=== PATIENT | female | born 1995 | race Caucasian/White ===

== ENCOUNTER 2017-04-27 20:38 | Inpatient (IN) | payer MEDICAID ==
[2017-04-27] MEDS ORDERED: Penicillin G Potassium 5 MILLUNITS in Sodium Chloride 0.9% 50 ML IV ONE (22:00)
[2017-04-27] MEDS ORDERED: Zolpidem 5 MG Tab PO ONE (22:10)
[2017-04-28] MEDS: Penicillin G Potassium 2.5 MILLUNITS in Sodium Chloride 0.9% 50 ML IV SCH ×3 (01:37→10:10)
[2017-04-28] MEDS: fentaNYL 100 MCG/2 ML SDV IVPUSH PRN ×3 (02:49→05:54)
[2017-04-28] MEDS ORDERED: Sodium Chloride 0.9% 10 ML Syringe FLUSH PRN (05:52)
[2017-04-28] MEDS ORDERED: Ondansetron 4 MG/2 ML SDV IV PRN (05:52)
[2017-04-28] MEDS ORDERED: Acetaminophen 325 MG Tab PO PRN (05:52)
[2017-04-28] MEDS ORDERED: ePHEDrine 50 MG/ML SDV ONE (06:01)
[2017-04-28] MEDS ORDERED: Lactated Ringers 1,000 ML IV ONE (06:03)
--- NOTE | 2017-04-28 06:10 | PCM.LDHP ---
L&D History of Present Illness - General Date of Service: 04/27/17 Admit Problem/Dx: Patient Status Order with Admit Dx/Problem 04/27/17 21:30 Patient Status [ADT] Routine Admission Diagnosis/Problem Admission Diagnosis/Problem Source of Information: Patient History Limitations: Reports: No Limitations - History of Present Illness Pain Score: 8 - Related Data Allergies/Adverse Reactions: Allergies Allergy/AdvReac Type Severity Reaction Status Date / Time No Known Allergies Allergy Verified 04/02/17 14:26 Home Medications: Home Meds Magnesium Oxide/Mag AA Chelate [Magnesium] 300 mg PO DAILY 04/02/17 [History] Vit37/Iron/Folic Acid [[place]] 1 each PO DAILY 04/02/17 [History] Past Medical History HEENT History: Reports: None Gastrointestinal History: Reports: Hemorrhoids Genitourinary History: Reports: None 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 Para: 0 Other OB/BYN History: TRINH-04/29/2017 Musculoskeletal History: Reports: None Neurological History: Reports: None Endocrine/Metabolic History: Reports: None - Infectious Disease History Infectious Disease History: Reports: None - Past Surgical History HEENT Surgical History: Reports: Adenoidectomy, Tonsillectomy GI Surgical History: Reports: None Female Surgical History: Reports: None Endocrine Surgical History: Reports: None Neurological Surgical History: Reports: None Musculoskeletal Surgical History: Reports: None Social & Family History - Tobacco Use Smoking Status *Q: Never Smoker Second Hand Smoke Exposure: No - Caffeine Use Caffeine Use: Reports: None - Recreational Drug Use Recreational Drug Use: No H&P Review of Systems - Review of Systems: Review Of Systems: See Below General: Reports: No Symptoms HEENT: Reports: No Symptoms Pulmonary: Reports: No Symptoms Cardiovascular: Reports: No Symptoms Gastrointestinal: Reports: No Symptoms Genitourinary: Reports: No Symptoms Musculoskeletal: Reports: No Symptoms Skin: Reports: No Symptoms Psychiatric: Reports: No Symptoms Neurological: Reports: No Symptoms Hematologic/Lymphatic: Reports: No Symptoms Immunologic: Reports: No Symptoms L&D Exam - Exam Exam: See Below - Vital Signs Vital Signs: Last Vital Signs Temp 36.1 C 04/28/17 04:24 Pulse 88 04/28/17 04:24 Resp 20 04/28/17 04:24 BP 124/59 L 04/28/17 04:24 Pulse Ox Weight: 88.451 kg - OB Specific Contraction Duration (sec): 60-80 Contraction Frequency (min): 2-6 Contraction Intensity: Mild to Moderate - Exam General: Alert, Oriented HEENT: PERRLA, Conjunctiva Clear, EACs Clear, EOMI, Hearing Intact, Mucosa Moist & [place], Nares Patent, Normal Nasal Septum, Posterior Pharynx Clear, TMs Clear Neck: Supple, Trachea Midline Lungs: Clear to Auscultation, Normal Respiratory Effort Cardiovascular: Regular Rate, Regular Rhythm GI/Abdominal Exam: Normal Bowel Sounds, Soft, Non-Tender, No Organomegaly, No Distention, No Abnormal Bruit, No Mass, Pelvis Stable Genitourinary: Normal external exam, Normal bimanual exam Back Exam: Normal Inspection, Full Range of Motion Extremities: Normal Inspection, Normal Range of Motion, Non-Tender, No Pedal Edema, Normal Capillary Refill Skin: Warm, Dry, Intact Neurological: Cranial Nerves Intact, Reflexes Equal Bilateral Psychiatric: Alert, Normal Affect, Normal Mood - Patient Data Lab Results Last 24 hrs: Laboratory Results - last 24 hr 04/27/17 04/27/17 04/27/17 Range/Units 20:45 20:52 22:50 WBC 10.8 (4.5-11.0) K/uL RBC 3.76 (3.30-5.50) M/uL Hgb 11.4 L (12.0-15.0) g/dL Hct 33.9 L (36.0-48.0) % MCV 90 (80-98) fL MCH 30 (27-31) pg MCHC 34 (32-36) % Plt Count 184 (150-400) K/uL Urine Color Yellow Urine Appearance Slightly cloudy Urine pH 6.5 (4.5-8.0) Ur Specific [place] 1.010 (1.008-1.030) Urine Protein Trace (NEGATIVE) mg/dL Urine Glucose (UA) Normal (NEGATIVE) mg/dL Urine Ketones Negative (NEGATIVE) mg/dL Urine Occult Blood Large (NEGATIVE) Urine Nitrite Negative (NEGATIVE) Urine Bilirubin Negative (NEGATIVE) Urine Urobilinogen Normal (NORMAL) mg/dL Ur Leukocyte Esterase Negative (NEGATIVE) Urine RBC 30-40 H (0-5) Urine WBC 5-10 H (0-5) Ur Epithelial Cells Many Amorphous Sediment Not seen Urine Bacteria Many Urine Mucus Few Membrane Rupture Positive H (NEGATIVE) Urine Opiates Screen (NEGATIVE) Ur Oxycodone Screen (NEGATIVE) Urine Methadone Screen (NEGATIVE) Ur Propoxyphene Screen (NEGATIVE) Ur Barbiturates Screen (NEGATIVE) Ur Tricyclics Screen (NEGATIVE) Ur Phencyclidine Scrn (NEGATIVE) Ur Amphetamine Screen (NEGATIVE) U Methamphetamines Scrn (NEGATIVE) Urine MDMA Screen (NEGATIVE) U Benzodiazepines Scrn (NEGATIVE) U Cocaine Metab Screen (NEGATIVE) U Marijuana (THC) Screen (NEGATIVE) 04/27/17 Range/Units 22:50 WBC (4.5-11.0) K/uL RBC (3.30-5.50) M/uL Hgb (12.0-15.0) g/dL Hct (36.0-48.0) % MCV (80-98) fL MCH (27-31) pg MCHC (32-36) % Plt Count (150-400) K/uL Urine Color Urine Appearance Urine pH (4.5-8.0) Ur Specific [place] (1.008-1.030) Urine Protein (NEGATIVE) mg/dL Urine Glucose (UA) (NEGATIVE) mg/dL Urine Ketones (NEGATIVE) mg/dL Urine Occult Blood (NEGATIVE) Urine Nitrite (NEGATIVE) Urine Bilirubin (NEGATIVE) Urine Urobilinogen (NORMAL) mg/dL Ur Leukocyte Esterase (NEGATIVE) Urine RBC (0-5) Urine WBC (0-5) Ur Epithelial Cells Amorphous Sediment Urine Bacteria Urine Mucus Membrane Rupture (NEGATIVE) Urine Opiates Screen Negative (NEGATIVE) Ur Oxycodone Screen Negative (NEGATIVE) Urine Methadone Screen Negative (NEGATIVE) Ur Propoxyphene Screen Negative (NEGATIVE) Ur Barbiturates Screen Negative (NEGATIVE) Ur Tricyclics Screen Negative (NEGATIVE) Ur Phencyclidine Scrn Negative (NEGATIVE) Ur Amphetamine Screen Negative (NEGATIVE) U Methamphetamines Scrn Negative (NEGATIVE) Urine MDMA Screen Negative (NEGATIVE) U Benzodiazepines Scrn Negative (NEGATIVE) U Cocaine Metab Screen Negative (NEGATIVE) U Marijuana (THC) Screen Negative (NEGATIVE) Result Diagrams: 04/27/17 22:50 - Problem List (1) SNOMED Code(s): 62948547 ICD Code: Z34.90 - ENCNTR FOR SUPRVSN OF NORMAL , UNSP, UNSP TRIMESTER Status: Acute Current Visit: Yes Qualifiers: Weeks of gestation: 39 weeks Qualified Code(s): Z3A.39 - 39 weeks gestation of (2) GBS (group B streptococcus) infection SNOMED Code(s): 997585784 ICD Code: A49.1 - STREPTOCOCCAL INFECTION, UNSPECIFIED SITE Status: Acute Current Visit: Yes (3) PROM (premature rupture of membranes) SNOMED Code(s): 59278883 ICD Code: O42.90 - NENA ROM, 7TH0 BETW RUPT & ONST LABR, UNSP WEEKS OF GEST Status: Acute Current Visit: Yes Qualifiers: PROM gestational age: full term Problem List Initiated/Reviewed/Updated: Yes Orders Last 24hrs: Active Orders 24 hr Category Date Time Status Patient Status [ADT] Routine ADT 04/27/17 21:30 Ordered Ambulate [RC] PER UNIT ROUTINE Care 04/28/17 05:52 Ordered Communication Order [RC] ASDIRECTED Care 04/28/17 05:52 Ordered Heart Tones [RC] PER UNIT ROUTINE Care 04/28/17 05:52 Ordered Local Anesthetic Infusion Pump [RC] ASDIRECTED Care 04/28/17 06:03 Ordered Notify Provider Vital Signs [RC] PRN Care 04/27/17 21:30 Ordered Notify Provider [RC] PRN Care 04/28/17 05:52 Ordered OB Check [OM.PC] Click to Edit Care 04/27/17 20:45 Ordered PCEA Epidural [RC] ASDIRECTED Care 04/28/17 06:03 Ordered Up ad Bhavana [RC] ASDIRECTED Care 04/28/17 05:52 Ordered VTE/DVT Education [RC] Click to Edit Care 04/28/17 06:01 Ordered Vital Signs [RC] PER UNIT ROUTINE Care 04/28/17 05:52 Ordered Acetaminophen [Tylenol] Med 04/28/17 05:52 Ordered 650 mg PO Q4H PRN Lactated Ringers [Ringers, Lactated] 1,000 ml Med 04/28/17 06:03 Ordered IV .BOLUS Ondansetron [Zofran] Med 04/28/17 05:52 Ordered 4 mg IV Q4H PRN Oxytocin/Normal Saline [Pitocin in NS 20 Units/1,000 ML Med 04/28/17 04:45 Active ] 20 unit in 1,000 ml IV TITRATE Penicillin G Potassium [Pfizerpen] 2.5 millunits Med 04/28/17 02:00 Active Sodium Chloride 0.9% [Normal Saline] 50 ml IV Q4H Sodium Chloride 0.9% [Saline Flush] Med 04/28/17 05:52 Ordered 10 ml FLUSH ASDIRECTED PRN ePHEDrine [ePHEDrine Sulfate] Med 04/28/17 06:01 Discontinued 50 mg .ROUTE .STK-MED ONE fentaNYL [Sublimaze] Med 04/28/17 02:38 Active 50 - 100 mcg IVPUSH Q1H PRN DVT/VTE Prophylaxis Reflex [OM.PC] Routine Oth 04/27/17 21:30 Ordered Epidural Catheter Management [OM.PC] Urgent Oth 04/28/17 06:03 Ordered Saline Lock Insert [OM.PC] Routine Oth 04/28/17 05:52 Ordered Resuscitation Status Routine Resus Stat 04/28/17 05:52 Ordered Medication Orders Acetaminophen (Tylenol) 650 mg PO Q4H PRN PRN Reason: Pain (Mild 1-3) and fever Fentanyl (Sublimaze) 50 - 100 mcg IVPUSH Q1H PRN PRN Reason: Pain (severe 7-10) Last Admin: 04/28/17 05:54 Dose: 100 mcg Admin: 04/28/17 04:22 Dose: 100 mcg Admin: 04/28/17 02:49 Dose: 50 mcg Penicillin G Potassium 2.5 (millunits/ Sodium Chloride) 50 mls @ 100 mls/hr IV Q4H TAMERA Last Admin: 04/28/17 01:37 Dose: 100 mls/hr Oxytocin/Sodium Chloride (Pitocin In Ns 20 Units/1,000 Ml) 20 unit in 1,000 mls @ 6 mls/hr IV TITRATE TAMERA; 2 MUNITS/MIN PRN Reason: Protocol Last Titration: 04/28/17 05:32 Dose: 3 munits/min, 9 mls/hr Admin: 04/28/17 05:02 Dose: 2 munits/min, 6 mls/hr Lactated Ringer's (Ringers, Lactated) 1,000 mls @ 999 mls/hr IV .BOLUS ONE Stop: 04/28/17 07:03 Ondansetron HCl (Zofran) 4 mg IV Q4H PRN PRN Reason: Nausea/Vomiting Sodium Chloride (Saline Flush) 10 ml FLUSH ASDIRECTED PRN PRN Reason: Keep Vein Open Assessment/Plan Comment:: 04/27/2017 21 yo came in tonight with SROM at around 2020 after getting off of work. SVE-/-3 very posterior Amnisure positive Labs-GBS positive, Rubella Immune, O positive, RPR nonreactive, Hep B negative, HIV negative [place] every 2-6 minutes FHTs category one Plan- Will initiate GBS antibiotics per protocol Will admit for labor Monitor for active labor Monitor FHTs Patient states wants no pain medication Will order ambien for sleep If no labor by 0500-will initiate pitocin per protocol Plan and anticipate an vaginal delivery
--- NOTE | 2017-04-28 06:23 | PCM.PNLD ---
Labor Progress Note - VS & Meds Vital Signs: Last Vital Signs Temp 36.1 C 04/28/17 04:24 Pulse 88 04/28/17 04:24 Resp 20 04/28/17 04:24 BP 124/59 L 04/28/17 04:24 Pulse Ox Active Medications: Current Medications Acetaminophen (Tylenol) 650 mg PO Q4H PRN PRN Reason: Pain (Mild 1-3) and fever Fentanyl (Sublimaze) 50 - 100 mcg IVPUSH Q1H PRN PRN Reason: Pain (severe 7-10) Last Admin: 04/28/17 05:54 Dose: 100 mcg Penicillin G Potassium 2.5 (millunits/ Sodium Chloride) 50 mls @ 100 mls/hr IV Q4H TAMERA Last Admin: 04/28/17 01:37 Dose: 100 mls/hr Oxytocin/Sodium Chloride (Pitocin In Ns 20 Units/1,000 Ml) 20 unit in 1,000 mls @ 6 mls/hr IV TITRATE TAMERA; 2 MUNITS/MIN PRN Reason: Protocol Last Titration: 04/28/17 05:32 Dose: 3 munits/min, 9 mls/hr Lactated Ringer's (Ringers, Lactated) 1,000 mls @ 999 mls/hr IV .BOLUS ONE Stop: 04/28/17 07:03 Ondansetron HCl (Zofran) 4 mg IV Q4H PRN PRN Reason: Nausea/Vomiting Sodium Chloride (Saline Flush) 10 ml FLUSH ASDIRECTED PRN PRN Reason: Keep Vein Open Discontinued Medications Ephedrine Sulfate (Ephedrine Sulfate) Confirm Administered Dose 50 mg .ROUTE .STK-MED ONE Stop: 04/28/17 06:02 Penicillin G Potassium 5 (millunits/ Sodium Chloride) 50 mls @ 100 mls/hr IV ONETIME ONE Stop: 04/27/17 22:29 Last Admin: 04/27/17 22:25 Dose: 100 mls/hr Zolpidem Tartrate (Ambien) 5 mg PO BEDTIME ONE Stop: 04/27/17 22:11 Last Admin: 04/27/17 22:49 Dose: 5 mg - Uterine Contractions Uterine Monitoring Mode: External [place] Contraction Frequency (min): 2-6 Contraction Duration (sec): 60-80 Contraction Intensity: Mild to Moderate Uterine Resting Tone: Soft - Vaginal Exam Dilation (cm): 3-4 Effacement (Percent): 100 Station: -2 Cervical Position: Midposition Sterile Vaginal Exam Performed By: Janice Wellington - Labor Progress (Free Text) Labor Progress: 04/28/2017 Patient is not tolerating contractions, she has need multiple doses of fentanyl and his very tearful SVE-3-4/100/-2 midposition Patient would like an epidural Contractions every 2-3 minutes and strong FHTs category one Plan- Will get the patient an epidural per her request Continue antibiotics for GBS status Place sandy once patient is comfortable Continue to monitor labor Continue to monitor FHTs Plan and anticipate a vaginal delivery
[2017-04-28] MEDS ORDERED: Ropivacaine 100 ML ONE (06:55)
[2017-04-28] MEDS ORDERED: ePHEDrine 50 MG/ML SDV IVPUSH ONE (07:00)
[2017-04-28] MEDS ORDERED: Lidocaine 1% 50 ML MDV ONE (09:18)
--- NOTE | 2017-04-28 09:52 | PCM.PNLD ---
Labor Progress Note - VS & Meds Vital Signs: Last Vital Signs Temp 97.0 F 04/28/17 04:24 Pulse 98 04/28/17 08:30 Resp 16 04/28/17 08:30 BP 107/78 04/28/17 08:30 Pulse Ox 97 04/28/17 08:30 Active Medications: Current Medications Acetaminophen (Tylenol) 650 mg PO Q4H PRN PRN Reason: Pain (Mild 1-3) and fever Fentanyl (Sublimaze) 50 - 100 mcg IVPUSH Q1H PRN PRN Reason: Pain (severe 7-10) Last Admin: 04/28/17 05:54 Dose: 100 mcg Penicillin G Potassium 2.5 (millunits/ Sodium Chloride) 50 mls @ 100 mls/hr IV Q4H TAMERA Last Admin: 04/28/17 07:00 Dose: 100 mls/hr Oxytocin/Sodium Chloride (Pitocin In Ns 20 Units/1,000 Ml) 20 unit in 1,000 mls @ 6 mls/hr IV TITRATE TAMERA; 2 MUNITS/MIN PRN Reason: Protocol Last Titration: 04/28/17 05:32 Dose: 3 munits/min, 9 mls/hr Ondansetron HCl (Zofran) 4 mg IV Q4H PRN PRN Reason: Nausea/Vomiting Sodium Chloride (Saline Flush) 10 ml FLUSH ASDIRECTED PRN PRN Reason: Keep Vein Open Discontinued Medications Ephedrine Sulfate (Ephedrine Sulfate) Confirm Administered Dose 50 mg .ROUTE .STK-MED ONE Stop: 04/28/17 06:02 Last Admin: 04/28/17 06:57 Dose: 10 mg Penicillin G Potassium 5 (millunits/ Sodium Chloride) 50 mls @ 100 mls/hr IV ONETIME ONE Stop: 04/27/17 22:29 Last Admin: 04/27/17 22:25 Dose: 100 mls/hr Lactated Ringer's (Ringers, Lactated) 1,000 mls @ 999 mls/hr IV .BOLUS ONE Stop: 04/28/17 07:03 Last Admin: 04/28/17 05:30 Dose: 999 mls/hr Ropivacaine (Naropin 0.2%) Confirm Administered Dose 100 mls @ as directed .ROUTE .STK-MED ONE Stop: 04/28/17 06:56 Lidocaine HCl (Xylocaine 1%) Confirm Administered Dose 100 ml .ROUTE .STK-MED ONE Stop: 04/28/17 09:19 Zolpidem Tartrate (Ambien) 5 mg PO BEDTIME ONE Stop: 04/27/17 22:11 Last Admin: 04/27/17 22:49 Dose: 5 mg - Uterine Contractions Uterine Monitoring Mode: External [place] Contraction Frequency (min): 2-3 Contraction Duration (sec): 80 Contraction Intensity: Mild to Moderate Uterine Resting Tone: Soft - Monitoring Monitor Mode: Doppler/Auscultation Heart Rate (FHR) Baseline: 140 Heart Rate (FHR) Variability: Moderate (6-25 bmp) Accelerations: Present, 15x15 Decelerations: Early Strip Review: Category I - Vaginal Exam Dilation (cm): 9 Effacement (Percent): 100 Station: 1 Cervical Position: Anterior Sterile Vaginal Exam Performed By: Caroline Vyas Vaginal Exam Comment: has an anterior lip and paritial epidural. Left buttock pain - Labor Progress (Free Text) Labor Progress: anterior lip, nice progress. Baby needs to come down more before pushing
[2017-04-28] MEDS ORDERED: Methylergonovine 0.2 MG/1 ML Amp IM ONE (11:35)
[2017-04-28] MEDS ORDERED: Methylergonovine 0.2 MG/1 ML Amp ONE (11:35)
[2017-04-28] MEDS ORDERED: Acetaminophen/Codeine 300-30 MG Tab PO PRN (12:07)
[2017-04-28] MEDS ORDERED: Acetaminophen 325 MG Tab, 50 Tab Bulk Bottle PO PRN (12:07)
[2017-04-28] MEDS ORDERED: Ibuprofen 200 MG Tab, 24 Tab Bulk Bottle PO PRN (12:07)
--- NOTE | 2017-04-28 12:32 | PCM.DEL ---
L & D Note - General Info Date of Service: 04/28/17 (delivery) Mother's Due Date: 04/29/17 - Delivery Note Labor: Spontaneous, Augmented by Oxytocin Delivery Outcome: Livebirth Infant Delivery Method: Spontaneous Vaginal Delivery Infant Delivery Mode: Spontaneous Presentation: Vertex Nuchal Cord: None Anesthesia Type: Epidural Amniotic Fluid Description: Clear Episiotomy Type: Midline Suture type: Vicryl Suture size: 3-0 Placenta: Intact, Spontaneous, Expressed Cord: 3 Vessels Estimated Blood Loss: 500 Resuscitation Needed: No : Stimulated, Warmed, [place] Used Provider: Caroline Vyas Score 1 min: 9 Score 5 min: 9 Score 10 min: 10 Post Delivery Events: Hemorrhage Second Stage Interventions: Reports: Second Nurse Reviewed Heart Tones, Pushing, McRobert's Position, Pushing, Squat Bar Pulling on Sheet Delivery Comments (Free Text/Narrative):: This 21 year old G1 now P1 who is 39 6/7 present last evening at 2224 with srom. Augmented contractions and obtained an epidural after that progressed nicely. Labored down after complete. in TRIP. An episiotomy was preformed to assist with delivery. A viable male infant was delivered without a nuchal cord onto mother's abdomen. He cried spontaneously. He was dried and stimulated 9,9,10., three vessel cord. THe placenta was expressed spontaneously in [place] antoine. Mother was bleeding briskly, Active management of third stage plus Methergine IM given and improved bleeding. The episiotomy was midline and repaired with 3-0 vicryl in standard fashion. Once the apex of the incision was ligated the bleeding improved. locked sutures to the hymenal ring, then interrupted sutures to repair perineum. No laceration of cervix, rectum were found.EBL 500 cc Mother and baby to nursery in stable condition.. First stage 0681-1410 Secind stage-1133 Third Stage 0449-4680 Baby weight 8-15 Induction Criteria - Peres Score Peres Score Dilation: 3-4 cm Peres Score Effacement: >80% Peres Score 's Station: -2 Peres Score Consistency: Soft Peres Score Cervix Position: Midposition Peres Score Total: 9 Peres Score Presenting Part: Reports: Cephalic - Induction Gestational Age >/= 39 wks: Yes Estimated Pelvis: Reports: Adequate Reassuring Monitoring Strip: Yes Absence of Tachy Systole: Yes - Augmentation Estimated Pelvis: Reports: Adequate Weight Estimated:: Reports: AGA Estimated Weight if LGA: 8 lb Reassuring monitoring strip: Yes Absence of tachy systole: Yes - General Info Date of Service: 04/28/17 Admission Dx/Problem (Free Text): Patient Status Order with Admit Dx/Problem 04/27/17 21:30 Patient Status [ADT] Routine Admission Diagnosis/Problem Admission Diagnosis/Problem Functional Status: Reports: Pain Controlled - Review of Systems General: Reports: No Symptoms HEENT: Reports: No Symptoms Pulmonary: Reports: No Symptoms Cardiovascular: Reports: No Symptoms Gastrointestinal: Reports: No Symptoms Genitourinary: Reports: No Symptoms Musculoskeletal: Reports: No Symptoms Skin: Reports: No Symptoms Neurological: Reports: No Symptoms Psychiatric: Reports: No Symptoms - Patient Data Vitals - Most Recent: Last Vital Signs Temp 97.0 F 04/28/17 04:24 Pulse 98 04/28/17 08:30 Resp 16 04/28/17 08:30 BP 107/78 04/28/17 08:30 Pulse Ox 97 04/28/17 08:30 Weight - Most Recent: 195 lb I&O - Last 24 Hours: Intake & Output 04/27/17 04/28/17 04/28/17 22:59 06:59 14:59 Intake Total 3075 Output Total 50 Balance 3025 Lab Results Last 24 Hours: Laboratory Results - last 24 hr 04/27/17 04/27/17 04/27/17 Range/Units 20:45 20:52 22:50 WBC 10.8 (4.5-11.0) K/uL RBC 3.76 (3.30-5.50) M/uL Hgb 11.4 L (12.0-15.0) g/dL Hct 33.9 L (36.0-48.0) % MCV 90 (80-98) fL MCH 30 (27-31) pg MCHC 34 (32-36) % Plt Count 184 (150-400) K/uL Urine Color Yellow Urine Appearance Slightly cloudy Urine pH 6.5 (4.5-8.0) Ur Specific [place] 1.010 (1.008-1.030) Urine Protein Trace (NEGATIVE) mg/dL Urine Glucose (UA) Normal (NEGATIVE) mg/dL Urine Ketones Negative (NEGATIVE) mg/dL Urine Occult Blood Large (NEGATIVE) Urine Nitrite Negative (NEGATIVE) Urine Bilirubin Negative (NEGATIVE) Urine Urobilinogen Normal (NORMAL) mg/dL Ur Leukocyte Esterase Negative (NEGATIVE) Urine RBC 30-40 H (0-5) Urine WBC 5-10 H (0-5) Ur Epithelial Cells Many Amorphous Sediment Not seen Urine Bacteria Many Urine Mucus Few Membrane Rupture Positive H (NEGATIVE) Urine Opiates Screen (NEGATIVE) Ur Oxycodone Screen (NEGATIVE) Urine Methadone Screen (NEGATIVE) Ur Propoxyphene Screen (NEGATIVE) Ur Barbiturates Screen (NEGATIVE) Ur Tricyclics Screen (NEGATIVE) Ur Phencyclidine Scrn (NEGATIVE) Ur Amphetamine Screen (NEGATIVE) U Methamphetamines Scrn (NEGATIVE) Urine MDMA Screen (NEGATIVE) U Benzodiazepines Scrn (NEGATIVE) U Cocaine Metab Screen (NEGATIVE) U Marijuana (THC) Screen (NEGATIVE) 04/27/17 Range/Units 22:50 WBC (4.5-11.0) K/uL RBC (3.30-5.50) M/uL Hgb (12.0-15.0) g/dL Hct (36.0-48.0) % MCV (80-98) fL MCH (27-31) pg MCHC (32-36) % Plt Count (150-400) K/uL Urine Color Urine Appearance Urine pH (4.5-8.0) Ur Specific [place] (1.008-1.030) Urine Protein (NEGATIVE) mg/dL Urine Glucose (UA) (NEGATIVE) mg/dL Urine Ketones (NEGATIVE) mg/dL Urine Occult Blood (NEGATIVE) Urine Nitrite (NEGATIVE) Urine Bilirubin (NEGATIVE) Urine Urobilinogen (NORMAL) mg/dL Ur Leukocyte Esterase (NEGATIVE) Urine RBC (0-5) Urine WBC (0-5) Ur Epithelial Cells Amorphous Sediment Urine Bacteria Urine Mucus Membrane Rupture (NEGATIVE) Urine Opiates Screen Negative (NEGATIVE) Ur Oxycodone Screen Negative (NEGATIVE) Urine Methadone Screen Negative (NEGATIVE) Ur Propoxyphene Screen Negative (NEGATIVE) Ur Barbiturates Screen Negative (NEGATIVE) Ur Tricyclics Screen Negative (NEGATIVE) Ur Phencyclidine Scrn Negative (NEGATIVE) Ur Amphetamine Screen Negative (NEGATIVE) U Methamphetamines Scrn Negative (NEGATIVE) Urine MDMA Screen Negative (NEGATIVE) U Benzodiazepines Scrn Negative (NEGATIVE) U Cocaine Metab Screen Negative (NEGATIVE) U Marijuana (THC) Screen Negative (NEGATIVE) Med Orders - Current: Current Medications Acetaminophen (Tylenol) 650 mg PO Q4H PRN PRN Reason: Pain (Mild 1-3) and fever Acetaminophen (Tylenol Bulk Bottle) 325 mg PO Q4H PRN PRN Reason: Pain Acetaminophen/Codeine Phosphate (Tylenol With Codeine No.3 300mg/30mg) 1 tab PO Q4H PRN PRN Reason: Pain (moderate 4-6) Docusate Sodium (Colace) 100 mg PO BID TAMERA Fentanyl (Sublimaze) 50 - 100 mcg IVPUSH Q1H PRN PRN Reason: Pain (severe 7-10) Last Admin: 04/28/17 05:54 Dose: 100 mcg Ferrous Sulfate (Ferrous Sulfate) 325 mg PO WITHBREAKFAST TAMERA Penicillin G Potassium 2.5 (millunits/ Sodium Chloride) 50 mls @ 100 mls/hr IV Q4H TAMERA Last Admin: 04/28/17 10:10 Dose: 100 mls/hr Oxytocin/Sodium Chloride (Pitocin In Ns 20 Units/1,000 Ml) 20 unit in 1,000 mls @ 6 mls/hr IV TITRATE TAMERA; 2 MUNITS/MIN PRN Reason: Protocol Last Titration: 04/28/17 05:32 Dose: 3 munits/min, 9 mls/hr Ibuprofen (Motrin Bulk Bottle) 600 mg PO Q6H PRN PRN Reason: Pain Ondansetron HCl (Zofran) 4 mg IV Q4H PRN PRN Reason: Nausea/Vomiting Sodium Chloride (Saline Flush) 10 ml FLUSH ASDIRECTED PRN PRN Reason: Keep Vein Open Discontinued Medications Ephedrine Sulfate (Ephedrine Sulfate) Confirm Administered Dose 50 mg .ROUTE .STK-MED ONE Stop: 04/28/17 06:02 Last Admin: 04/28/17 06:57 Dose: 10 mg Penicillin G Potassium 5 (millunits/ Sodium Chloride) 50 mls @ 100 mls/hr IV ONETIME ONE Stop: 04/27/17 22:29 Last Admin: 04/27/17 22:25 Dose: 100 mls/hr Lactated Ringer's (Ringers, Lactated) 1,000 mls @ 999 mls/hr IV .BOLUS ONE Stop: 04/28/17 07:03 Last Admin: 04/28/17 05:30 Dose: 999 mls/hr Ropivacaine (Naropin 0.2%) Confirm Administered Dose 100 mls @ as directed .ROUTE .STK-MED ONE Stop: 04/28/17 06:56 Lidocaine HCl (Xylocaine 1%) Confirm Administered Dose 100 ml .ROUTE .STK-MED ONE Stop: 04/28/17 09:19 Methylergonovine Maleate (Methergine) Confirm Administered Dose 0.2 mg .ROUTE .STK-MED ONE Stop: 04/28/17 11:36 Zolpidem Tartrate (Ambien) 5 mg PO BEDTIME ONE Stop: 04/27/17 22:11 Last Admin: 04/27/17 22:49 Dose: 5 mg - Exam General: Alert, Oriented HEENT: Pupils Equal, Pupils Reactive, EOMI, Mucous Membr. Moist/[place] Neck: Supple Lungs: Clear to Auscultation, Normal Respiratory Effort Cardiovascular: Regular Rate, Regular Rhythm GI/Abdominal Exam: Normal Bowel Sounds, Soft, Non-Tender, Pelvis Stable (Female) Exam: Cervical Dilatation, Enlarged Uterus, Vaginal Bleeding, Other (episiotomy) Back Exam: Normal Inspection, Full Range of Motion Extremities: Normal Inspection, Normal Range of Motion, Non-Tender, Normal Capillary Refill Skin: Warm, Dry, Intact Wound/Incisions: Healing Well Neurological: No New Focal Deficit Psy/Mental Status: Alert, Normal Affect, Normal Mood - Problem List & Annotations (1) Normal labor and delivery SNOMED Code(s): 39065577, 801566251 Code(s): O80 - ENCOUNTER FOR FULL-TERM UNCOMPLICATED DELIVERY Status: Acute Current Visit: Yes (2) (infant) SNOMED Code(s): 054586194 Code(s): Z78.9 - OTHER SPECIFIED HEALTH STATUS Status: Acute Current Visit: Yes (3) SNOMED Code(s): 89450433 Code(s): Z34.90 - ENCNTR FOR SUPRVSN OF NORMAL , UNSP, UNSP TRIMESTER Status: Acute Current Visit: Yes Qualifiers: Weeks of gestation: 39 weeks Qualified Code(s): Z3A.39 - 39 weeks gestation of (4) GBS (group B streptococcus) infection SNOMED Code(s): 277064253 Code(s): A49.1 - STREPTOCOCCAL INFECTION, UNSPECIFIED SITE Status: Acute Current Visit: Yes (5) PROM (premature rupture of membranes) SNOMED Code(s): 11740746 Code(s): O42.90 - NENA ROM, 7TH0 BETW RUPT & ONST LABR, UNSP WEEKS OF GEST Status: Acute Current Visit: Yes Qualifiers: PROM onset of labor timing: onset of labor within 24 hours of rupture PROM gestational age: full term Qualified Code(s): O42.02 - Full-term premature rupture of membranes, onset of labor within 24 hours of rupture - Problem List Review Problem List Initiated/Reviewed/Updated: Yes - My Orders Last 24 Hours: My Active Orders 04/28/17 12:07 Acetaminophen [Tylenol Bulk Bottle] 325 mg PO Q4H PRN Acetaminophen/Codeine [Tylenol with Codeine No.3 300MG/30MG] 1 tab PO Q4H PRN Ibuprofen [Motrin Bulk Bottle] 600 mg PO Q6H PRN Assess Lochia [WOMSER] Per Unit Routine Assess Uterine Involution [WOMSER] Per Unit Routine 04/28/17 12:09 Patient Status [ADT] Routine Vital Signs [RC] PFP Ice Therapy [OM.PC] Per Unit Routine Perineal Care [OM.PC] Per Unit Routine 04/28/17 12:10 Peripheral IV Discontinue [OM.PC] Routine 04/28/17 12:15 Docusate Sodium [Colace] 100 mg PO BID 04/28/17 Lunch Regular Diet [DIET] 04/29/17 05:11 CBC W/O DIFF,HEMOGRAM [HEME] AM 04/29/17 08:00 Ferrous Sulfate 325 mg PO WITHBREAKFAST - Assessment Assessment:: 21 yr old G1 now P1 without complications, episiotomy with repair ABO O pos GBS Pos, treated HIV neg Rubella immune - Plan Plan:: 04/27/2017 21 yo came in tonight with SROM at around 2020 after getting off of work. SVE-2/50/-3 very posterior Amnisure positive Labs-GBS positive, Rubella Immune, O positive, RPR nonreactive, Hep B negative, HIV negative Korey every 2-6 minutes FHTs category one Plan- Will initiate GBS antibiotics per protocol Will admit for labor Monitor for active labor Monitor FHTs Patient states wants no pain medication Will order ambien for sleep If no labor by 0500-will initiate pitocin per protocol Plan and anticipate an vaginal delivery 04/28/17 Routine care 48 hour stay due to GBS status Monitor bleeding, HGB in AM Repair, ice times 24 hours Support
[2017-04-28] MEDS: Docusate Sodium 100 MG Cap PO SCH (13:32)
--- NOTE | 2017-04-28 14:32 | ANES ---
DATE OF SERVICE: 04/28/2017 INDICATION: Maryam is a 21-year-old female patient of Janice Wellington CNM in her OB unit. I was consulted for assessment, labor epidural for a prolonged stage II labor. On arrival, I found Maryam sitting at the edge of the bed. I discussed with her the patient history as well as reviewed her lab work and risks and benefits of the procedure and found no contraindication of the procedure. She was okay to proceed and consent was received. DESCRIPTION OF PROCEDURE: I had her continue seated at the edge of the bed. Betadine prep x3 to lumbar region. Sterile drape was placed, 1% lidocaine skin wheal as well as deep at the L3-L4 region. A 17-gauge Tuohy was placed to loss of resistance with ease. Negative CSF, negative heme, and negative paresthesia. I placed a catheter to 13 cm. I removed the needle. A test dose of 3 mL of 1.5% lidocaine and 1:200,000 epinephrine. She tolerated that quite well. I secured the catheter, placed it in supine position. Dosed her with 12 mL of 0.2% ropivacaine and began an infusion of that same 0.2% at 12 mL an hour. She tolerated the procedure quite well. Please refer to nursing notes for vital signs and neuro status, which were unchanged. I reported off to nursing, Janice nurse resin coater. Again, the patient tolerated the procedure quite well. Herbert Miles CRNA /[id number]
[2017-04-28] MEDS ORDERED: Benzocaine 20% Top Spray 56 GM Bottle TOP PRN (15:32)
[2017-04-28] MEDS ORDERED: Witch Hazel Medicated Pads 100/Jar TOP PRN (15:36)
[2017-04-29] MEDS: Docusate Sodium 100 MG Cap PO SCH ×3 (06:51→20:58)
[2017-04-29] MEDS: Ferrous Sulfate 325 MG Tab PO SCH (08:32)
--- NOTE | 2017-04-29 10:04 | PCM.PNPP ---
- General Info Date of Service: 04/29/17 Functional Status: Reports: Pain Controlled - Review of Systems General: Reports: No Symptoms HEENT: Reports: No Symptoms Pulmonary: Reports: No Symptoms Cardiovascular: Reports: No Symptoms Gastrointestinal: Reports: No Symptoms Genitourinary: Reports: No Symptoms Musculoskeletal: Reports: No Symptoms Skin: Reports: No Symptoms Neurological: Reports: No Symptoms Psychiatric: Reports: No Symptoms - General Info Date of Service: 04/29/17 - Patient Data Vital Signs - Most Recent: Last Vital Signs Temp 97.5 F 04/29/17 07:55 Pulse 93 04/29/17 07:55 Resp 16 04/29/17 07:55 BP 104/59 L 04/29/17 07:55 Pulse Ox 98 04/29/17 07:55 Weight - Most Recent: 195 lb I&O - Last 24 Hours: Intake & Output 04/28/17 04/29/17 04/29/17 22:59 06:59 14:59 Intake Total 800 620 Balance 800 620 Lab Results - Last 24 Hours: Laboratory Results - last 24 hr 04/29/17 Range/Units 05:45 WBC 15.5 H (4.5-11.0) K/uL RBC 3.20 L (3.30-5.50) M/uL Hgb 9.7 L (12.0-15.0) g/dL Hct 29.0 L (36.0-48.0) % MCV 91 (80-98) fL MCH 30 (27-31) pg MCHC 33 (32-36) % Plt Count 170 (150-400) K/uL Med Orders - Current: Current Medications Acetaminophen (Tylenol) 650 mg PO Q4H PRN PRN Reason: Pain (Mild 1-3) and fever Acetaminophen (Tylenol Bulk Bottle) 325 - 650 mg PO Q4H PRN PRN Reason: Pain Last Admin: 04/28/17 13:33 Dose: 1 bottle Acetaminophen/Codeine Phosphate (Tylenol With Codeine No.3 300mg/30mg) 1 tab PO Q4H PRN PRN Reason: Pain (moderate 4-6) Benzocaine (Ateb-T-Btpbtvo 20% Watson) 0 gm TOP ASDIRECTED PRN PRN Reason: Pain Docusate Sodium (Colace) 100 mg PO BID TAMERA Last Admin: 04/29/17 08:32 Dose: 100 mg Fentanyl (Sublimaze) 50 - 100 mcg IVPUSH Q1H PRN PRN Reason: Pain (severe 7-10) Last Admin: 04/28/17 05:54 Dose: 100 mcg Ferrous Sulfate (Ferrous Sulfate) 325 mg PO WITHBREAKFAST TAMERA Last Admin: 04/29/17 08:32 Dose: 325 mg Oxytocin/Sodium Chloride (Pitocin In Ns 20 Units/1,000 Ml) 20 unit in 1,000 mls @ 6 mls/hr IV TITRATE TAMERA; 2 MUNITS/MIN PRN Reason: Protocol Last Titration: 04/28/17 05:32 Dose: 3 munits/min, 9 mls/hr Oxytocin/Sodium Chloride (Pitocin In Ns 20 Units/1,000 Ml) 20 unit in 1,000 mls @ 6 mls/hr IV TITRATE TAMERA; 2 MUNITS/MIN PRN Reason: Protocol Ibuprofen (Motrin Bulk Bottle) 600 mg PO Q6H PRN PRN Reason: Pain Last Admin: 04/28/17 13:33 Dose: 1 bottle Ondansetron HCl (Zofran) 4 mg IV Q4H PRN PRN Reason: Nausea/Vomiting Sodium Chloride (Saline Flush) 10 ml FLUSH ASDIRECTED PRN PRN Reason: Keep Vein Open Witch Ilene (Tucks) 1 pad TOP ASDIRECTED PRN PRN Reason: Pain Discontinued Medications Ephedrine Sulfate (Ephedrine Sulfate) Confirm Administered Dose 50 mg .ROUTE .STK-MED ONE Stop: 04/28/17 06:02 Last Admin: 04/28/17 06:57 Dose: 10 mg Ephedrine Sulfate (Ephedrine Sulfate) 50 mg IVPUSH ONETIME ONE Stop: 04/28/17 07:01 Last Admin: 04/29/17 05:16 Dose: Not Given Penicillin G Potassium 5 (millunits/ Sodium Chloride) 50 mls @ 100 mls/hr IV ONETIME ONE Stop: 04/27/17 22:29 Last Admin: 04/27/17 22:25 Dose: 100 mls/hr Penicillin G Potassium 2.5 (millunits/ Sodium Chloride) 50 mls @ 100 mls/hr IV Q4H TAMERA Last Admin: 04/28/17 10:10 Dose: 100 mls/hr Lactated Ringer's (Ringers, Lactated) 1,000 mls @ 999 mls/hr IV .BOLUS ONE Stop: 04/28/17 07:03 Last Admin: 04/28/17 05:30 Dose: 999 mls/hr Ropivacaine (Naropin 0.2%) Confirm Administered Dose 100 mls @ as directed .ROUTE .STK-MED ONE Stop: 04/28/17 06:56 Lidocaine HCl (Xylocaine 1%) Confirm Administered Dose 100 ml .ROUTE .STK-MED ONE Stop: 04/28/17 09:19 Last Admin: 04/29/17 05:16 Dose: Not Given Methylergonovine Maleate (Methergine) Confirm Administered Dose 0.2 mg .ROUTE .STK-MED ONE Stop: 04/28/17 11:36 Last Admin: 04/28/17 11:38 Dose: 0.2 mg Methylergonovine Maleate (Methergine) 0.2 mg IM Q4H ONE Stop: 04/28/17 11:36 Last Admin: 04/29/17 05:16 Dose: Not Given Zolpidem Tartrate (Ambien) 5 mg PO BEDTIME ONE Stop: 04/27/17 22:11 Last Admin: 04/27/17 22:49 Dose: 5 mg - Infant Interaction Infant Disposition, : [place] in Room with Family Infant Interaction: Holding Infant Feeding: Breastfed ; Nursed Well, Encouraged to Breastfeed Support Person: Mother, Significant Other - Recovery Exam Fundal Tone: Firm Fundal Level: At Umbilicus Fundal Placement: Midline Lochia Amount: Moderate Lochia Color: Rubra/Red Perineum Description: Intact, Minimal Bruising/Swelling, Edematous, Hemorrhoids Episiotomy/Laceration: Approximated (no hematoma, healing well) Bladder Status: Voiding Urinary Elimination: Voided - Exam General: Alert, Oriented HEENT: Pupils Equal Neck: Supple Lungs: Clear to Auscultation, Normal Respiratory Effort Cardiovascular: Regular Rate, Regular Rhythm GI/Abdominal Exam: Normal Bowel Sounds, Soft, Non-Tender, No Organomegaly, No Distention, No Abnormal Bruit, No Mass, Pelvis Stable Extremities: Normal Inspection, Normal Range of Motion, Non-Tender, No Pedal Edema, Normal Capillary Refill Skin: Warm, Dry, Intact Neurological: No New Focal Deficit Psy/Mental Status: Alert, Normal Affect, Normal Mood - Problem List Review Problem List Initiated/Reviewed/Updated: Yes - Assessment Assessment:: 21 yr old G1 now P1 without complications, episiotomy with repair ABO O pos GBS Pos, treated HIV neg Rubella immune - Plan Plan:: 04/28/17 Routine care 48 hour stay due to GBS status Monitor bleeding, HGB in AM Repair, ice times 24 hours Support
[2017-04-29] MEDS ORDERED: Lanolin 100% Cream 40 GM Tube TOP PRN (19:38)
[2017-04-30 07:47] VITALS: BP 119/68
[2017-04-30] MEDS: Docusate Sodium 100 MG Cap PO SCH (08:09)
[2017-04-30] MEDS: Ferrous Sulfate 325 MG Tab PO SCH (08:09)
--- NOTE | 2017-04-30 09:49 | PCM.DCSUM1 ---
Discharge Summary - Hospital Course Free Text/Narrative:: This 21 year old G1 now P1 who is 39 6/7 present last evening at 2224 with srom. Augmented contractions and obtained an epidural after that progressed nicely. Labored down after complete. in TRIP. An episiotomy was preformed to assist with delivery. A viable male infant was delivered without a nuchal cord onto mother's abdomen. He cried spontaneously. He was dried and stimulated 9,9,10., three vessel cord. THe placenta was expressed spontaneously in Charles antoine. Mother was bleeding briskly, Active management of third stage plus Methergine IM given and improved bleeding. The episiotomy was midline and repaired with 3-0 vicryl in standard fashion. Once the apex of the incision was ligated the bleeding improved. locked sutures to the hymenal ring, then interrupted sutures to repair perineum. No laceration of cervix, rectum were found.EBL 500 cc course was umcomplicated. Mom is and that has been going well. Reviewed with her feeding, PP depression and baby blues, bowels, fluid intake. She declines control at this time and will use condoms initially. Reviewed options. - Discharge Data Discharge Date: 04/30/17 Discharge Disposition: Home, Self-Care 01 Condition: Good - Discharge Diagnosis/Problem(s) (1) GBS (group B streptococcus) infection SNOMED Code(s): 166700463 ICD Code: A49.1 - STREPTOCOCCAL INFECTION, UNSPECIFIED SITE Status: Acute Current Visit: Yes (2) Normal labor and delivery SNOMED Code(s): 22542665, 258522071 ICD Code: O80 - ENCOUNTER FOR FULL-TERM UNCOMPLICATED DELIVERY Status: Acute Current Visit: Yes - Patient Summary/Data Complications: None Hospital Course: Uncomplicated hospital course. well. Bonding well. Declines control. Follow-up in 2 days with baby for weight check. - Patient Instructions Diet: Regular Diet as Tolerated, Drink 8-10+ Glasses/Day Activity: Apply Ice Driving: May Drive Today Showering/Bathing: May Shower Notify Provider of: Fever, Increased Pain, Swelling and Redness, Nausea and/or Vomiting - Discharge Plan Home Medications: Home Meds Magnesium Oxide/Mag AA Chelate [Magnesium] 300 mg PO DAILY 04/02/17 [History] Vit37/Iron/Folic Acid [Prenata] 1 each PO DAILY 04/02/17 [History] - Discharge Summary/Plan Comment DC Time >30 min.: No - General Info Date of Service: 04/30/17 Admission Dx/Problem (Free Text: Patient Status Order with Admit Dx/Problem 04/27/17 21:30 Patient Status [ADT] Routine Admission Diagnosis/Problem Admission Diagnosis/Problem Functional Status: Reports: Pain Controlled - Review of Systems General: Reports: No Symptoms HEENT: Reports: No Symptoms Pulmonary: Reports: No Symptoms Cardiovascular: Reports: No Symptoms Gastrointestinal: Reports: No Symptoms Genitourinary: Reports: No Symptoms Musculoskeletal: Reports: No Symptoms Skin: Reports: No Symptoms Neurological: Reports: No Symptoms Psychiatric: Reports: No Symptoms - Patient Data Vitals - Most Recent: Last Vital Signs Temp 98.0 F 04/30/17 07:46 Pulse 93 04/30/17 07:46 Resp 16 04/30/17 07:46 BP 119/68 04/30/17 07:46 Pulse Ox 98 04/30/17 07:46 Weight - Most Recent: 195 lb I&O - Last 24 hours: Intake & Output 04/29/17 04/30/17 04/30/17 22:59 06:59 14:59 Intake Total 900 Balance 900 Med Orders - Current: Current Medications Acetaminophen (Tylenol) 650 mg PO Q4H PRN PRN Reason: Pain (Mild 1-3) and fever Acetaminophen (Tylenol Bulk Bottle) 325 - 650 mg PO Q4H PRN PRN Reason: Pain Last Admin: 04/28/17 13:33 Dose: 1 bottle Acetaminophen/Codeine Phosphate (Tylenol With Codeine No.3 300mg/30mg) 1 tab PO Q4H PRN PRN Reason: Pain (moderate 4-6) Benzocaine (Zred-[id number]-Cpcpcgp 20% [place]) 0 gm TOP ASDIRECTED PRN PRN Reason: Pain Docusate Sodium (Colace) 100 mg PO BID TAEMRA Last Admin: 04/30/17 08:09 Dose: 100 mg Emollient Ointment (Lansinoh Hpa) 40 gm TOP ASDIRECTED PRN PRN Reason: SORE NIPPLES Last Admin: 04/29/17 20:06 Dose: 1 applic Fentanyl (Sublimaze) 50 - 100 mcg IVPUSH Q1H PRN PRN Reason: Pain (severe 7-10) Last Admin: 04/28/17 05:54 Dose: 100 mcg Ferrous Sulfate (Ferrous Sulfate) 325 mg PO WITHBREAKFAST TAMERA Last Admin: 04/30/17 08:09 Dose: 325 mg Oxytocin/Sodium Chloride (Pitocin In Ns 20 Units/1,000 Ml) 20 unit in 1,000 mls @ 6 mls/hr IV TITRATE TAMERA; 2 MUNITS/MIN PRN Reason: Protocol Last Titration: 04/28/17 05:32 Dose: 3 munits/min, 9 mls/hr Oxytocin/Sodium Chloride (Pitocin In Ns 20 Units/1,000 Ml) 20 unit in 1,000 mls @ 6 mls/hr IV TITRATE TAMERA; 2 MUNITS/MIN PRN Reason: Protocol Ibuprofen (Motrin Bulk Bottle) 600 mg PO Q6H PRN PRN Reason: Pain Last Admin: 04/28/17 13:33 Dose: 1 bottle Ondansetron HCl (Zofran) 4 mg IV Q4H PRN PRN Reason: Nausea/Vomiting Sodium Chloride (Saline Flush) 10 ml FLUSH ASDIRECTED PRN PRN Reason: Keep Vein Open Witch Ilene (Tucks) 1 pad TOP ASDIRECTED PRN PRN Reason: Pain Discontinued Medications Ephedrine Sulfate (Ephedrine Sulfate) Confirm Administered Dose 50 mg .ROUTE .STK-MED ONE Stop: 04/28/17 06:02 Last Admin: 04/28/17 06:57 Dose: 10 mg Ephedrine Sulfate (Ephedrine Sulfate) 50 mg IVPUSH ONETIME ONE Stop: 04/28/17 07:01 Last Admin: 04/29/17 05:16 Dose: Not Given Penicillin G Potassium 5 (millunits/ Sodium Chloride) 50 mls @ 100 mls/hr IV ONETIME ONE Stop: 04/27/17 22:29 Last Admin: 04/27/17 22:25 Dose: 100 mls/hr Penicillin G Potassium 2.5 (millunits/ Sodium Chloride) 50 mls @ 100 mls/hr IV Q4H TAMERA Last Admin: 04/28/17 10:10 Dose: 100 mls/hr Lactated Ringer's (Ringers, Lactated) 1,000 mls @ 999 mls/hr IV .BOLUS ONE Stop: 04/28/17 07:03 Last Admin: 04/28/17 05:30 Dose: 999 mls/hr Ropivacaine (Naropin 0.2%) Confirm Administered Dose 100 mls @ as directed .ROUTE .STK-MED ONE Stop: 04/28/17 06:56 Lidocaine HCl (Xylocaine 1%) Confirm Administered Dose 100 ml .ROUTE .STK-MED ONE Stop: 04/28/17 09:19 Last Admin: 04/29/17 05:16 Dose: Not Given Methylergonovine Maleate (Methergine) Confirm Administered Dose 0.2 mg .ROUTE .STK-MED ONE Stop: 04/28/17 11:36 Last Admin: 04/28/17 11:38 Dose: 0.2 mg Methylergonovine Maleate (Methergine) 0.2 mg IM Q4H ONE Stop: 04/28/17 11:36 Last Admin: 04/29/17 05:16 Dose: Not Given Zolpidem Tartrate (Ambien) 5 mg PO BEDTIME ONE Stop: 04/27/17 22:11 Last Admin: 04/27/17 22:49 Dose: 5 mg - Exam General: Reports: Alert, Oriented Neck: Reports: Supple Lungs: Reports: Clear to Auscultation, Normal Respiratory Effort Cardiovascular: Reports: Regular Rate, Regular Rhythm GI/Abdominal Exam: Normal Bowel Sounds, Soft, Non-Tender, No Organomegaly, No Distention, No Abnormal Bruit, No Mass, Pelvis Stable (Female) Exam: Normal External Exam, Normal Speculum Exam, Normal Bimanual Exam, Other (Episiotomy clean/dry/intact, no hematoma) Extremities: Normal Inspection Skin: Reports: Warm, Dry, Intact Neurological: Reports: No New Focal Deficit Psy/Mental Status: Reports: Alert *Q Meaningful Use (DIS) - VTE *Q VTE Criteria *Q: - Stroke *Q Stroke Criteria *Q: - AMI *Q AMI Criteria *Q:
== END 2017-04-30 11:22 | disposition home or self-care (01) | DRG 560 ==
LOC: JP.OBCHECK 20:38 → JP.OB 21:30 → OBSVTOIN 04-28 11:33 → JP.MS 04-28 14:30
PROVIDERS: ADMIT Advanced Practice Midwife; ATTEND Nurse Practitioner Family
PROC: 00HU33Z Insertion of Infusion Device into Spinal Canal, Percutaneous Approach (ICD-10-PCS; principal; 2017-04-28)
PROC: 10E0XZZ Delivery of Products of Conception, External Approach (ICD-10-PCS; 2017-04-28)
PROC: 0W8NXZZ Division of Female Perineum, External Approach (ICD-10-PCS; 2017-04-28)
PROC: 0UQG0ZZ Repair Vagina, Open Approach (ICD-10-PCS; 2017-04-28)
DX: O99.824 Streptococcus B carrier state complicating childbirth (principal); Z3A.39 39 weeks gestation of pregnancy; Z37.0 Single live birth; O42.02 Full-term premature rupture of membranes, onset of labor within 24 hours of rupture
CPT/HCPCS: 36415; 51702; 80305; 81001; 84112; 85027; 99211; A9270-GY; J2210; J2540; J2590; J2795; J3010; J7050; J7120